=== PATIENT | female | born 1960 | race Caucasian/White ===

== ENCOUNTER 2017-03-15 10:58 | Day surgery (SDC) | payer OTHER ==
[2017-03-09 11:13] VITALS: BMI 33.6
[2017-03-15] MEDS ORDERED: MIDAZOLAM HCL 2 MG/2 ML SINGLE DOSE VIAL ONE (12:07)
[2017-03-15] MEDS ORDERED: DEXAMETHASONE SOD PHOSPHATE/PF 10 MG/ML SDV ONE (12:08)
[2017-03-15] MEDS ORDERED: EPINEPHrine 1:1,000 1 MG/1 ML - 30ML VIAL (INJECTION) ONE (12:53)
[2017-03-15] MEDS ORDERED: PROPOFOL 20 ML ONE ×5 (13:18→14:28)
[2017-03-15] MEDS ORDERED: ceFAZolin SODIUM 1 GM VIAL ONE (13:23)
[2017-03-15] MEDS ORDERED: KETAMINE HCL 200 MG/20 ML VIAL ONE (14:12)
[2017-03-15] MEDS ORDERED: oxyCODONE HCL 5 MG TABLET PO PRN (14:41)
[2017-03-15] MEDS ORDERED: ONDANSETRON 4 MG/2 ML VIAL IVPUSH PRN (14:41)
[2017-03-15] MEDS ORDERED: HYDROmorphone HCL/PF 1 MG/ML VIAL (FOR PYXIS CHARGING ONLY) ONE (14:53)
[2017-03-15] MEDS ORDERED: KETOROLAC TROMETHAMINE 30 MG/1 ML VIAL ONE (15:53)
[2017-03-15] MEDS ORDERED: ACETAMINOPHEN 325 MG TABLET (FP) PO ONE (16:08)
[2017-03-15] MEDS ORDERED: ACETAMINOPHEN 325 MG TABLET (FP) PO PRN (16:08)
[2017-03-15] MEDS ORDERED: KETOROLAC TROMETHAMINE 30 MG/1 ML VIAL IVPUSH ONE (16:09)
[2017-03-15 17:58] VITALS: TEMP 98
[2017-03-15 18:01] VITALS: BP 148/85; PULSE 82
--- NOTE | 2017-03-16 10:25 | OP ---
DATE OF OPERATION: 03/15/2017 PREOPERATIVE DIAGNOSES: 1. Right shoulder rotator cuff tear. 2. Right shoulder biceps tendon tear. 3. Right shoulder subacromial impingement. POSTOPERATIVE DIAGNOSES: 1. Right shoulder rotator cuff tear. 2. Right shoulder biceps tendon tear. 3. 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 4. Right shoulder subacromial impingement syndrome OPERATIVE PROCEDURES: 1. Right shoulder arthroscopic rotator cuff repair. 2. Right shoulder biceps proximal tenotomy. 3. Right shoulder glenohumeral joint extensive debridement and synovectomy. 4. Right shoulder arthroscopic subacromial decompression with anterior-inferior acromioplasty. SURGEON: Dejon Rausch MD DIRECTOR CARD: RACHANA Saenz ANESTHESIA: Regional. COMPLICATIONS: None. ESTIMATED BLOOD LOSS: Minimal. INDICATIONS FOR PROCEDURE: The patient is a 56-year-old female with the above findings, indicated for operative treatment. The risks, benefits, and alternatives were discussed with the patient at length, and proper informed consent was obtained. PROCEDURE: After proper identification of the patient and the correct operative site, patient was brought to the operating room, where regional anesthesia was given. She was placed in the beach-chair position with all points of contact well padded. An in-line cervical position was maintained throughout the procedure. Right upper extremity was prepped and draped in usual sterile fashion. Arthroscopy was performed through posterior, lateral, and anterior portals. All portals were made with skin incision only with blunt dissection down the joint capsule. 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 Significant fraying of the glenoid labrum was noted including superior-anterior and superior-posterior. This was debrided with mechanical shaver. Extensive synovitis was noted in the anterior and inferior aspect of the shoulder, and again this was debrided with mechanical shaver. Subscapularis was found to be intact. Biceps tendon was found to have significant interstitial fraying and tearing all the way to the level of the labrum. At this point, it was determined that a biceps tenotomy would be in her best interest, and the biceps tendon was resected proximally and allowed to fall into the arm. No hourglass lesion was noted, so, the biceps tendon was able to fall into the arm. The patient was found to have a full-thickness retracted tear of the supraspinatus tendon. This was approximately 2 cm in the anterior to posterior direction. Infraspinatus was intact, although there was some tendinosis, which was debrided as well. Arthroscope was then introduced into the subacromial space, where a severe bursitis was noted. This was debrided with mechanical shaver. An ArthroWand was also used. A very large anterior-inferior subacromial spur was noted, and anterior-inferior acromioplasty was performed with a alma delia. The rotator cuff tear was again identified and found to be retracted about 2 cm. The greater tuberosity was debrided for healthy repair. The rotator cuff was mobilized, but was not able to be brought all the way to its original attachment, and therefore, it was medialized in its repair by about 1 cm. The rotator cuff was repaired using an Arthrex double-row equivalent SpeedBridge type technique. Two medial anchors were placed in the humeral head. These were both SwiveLock anchors loaded with FiberTape. These were then passed through the rotator cuff and crossed and attached laterally with a second row of SwiveLock anchors. This provided secure stable repair without any tension on the repair. Shoulder was taken through a range of motion, and full range of motion was achieved without again any tension on the repair. Wounds were irrigated with saline and repaired with 5-0 nylon sutures. Sterile dressings and a sling were placed. The shoulder immobilizer was placed. Patient was reversed from anesthesia and brought to the recovery room in stable condition. She tolerated the procedure well. Yoshi Kimbrough, the assistant portfolio manager, was integral throughout this procedure. The procedure could not have been performed without a skilled operative assistant portfolio manager. Cori [id number]
== END 2017-03-15 17:55 | disposition home or self-care (01) ==
LOC: FASU 10:58
PROVIDERS: ATTEND Orthopaedic Surgery Hand Surgery
PROC: 0LN14ZZ Release Right Shoulder Tendon, Percutaneous Endoscopic Approach (ICD-10-PCS; 2017-03-15)
PROC: 0LB14ZZ Excision of Right Shoulder Tendon, Percutaneous Endoscopic Approach (ICD-10-PCS; principal; 2017-03-15 13:02)
PROC: 0RNJ4ZZ Release Right Shoulder Joint, Percutaneous Endoscopic Approach (ICD-10-PCS; 2017-03-15 13:02)
PROC: 0RBJ4ZZ Excision of Right Shoulder Joint, Percutaneous Endoscopic Approach (ICD-10-PCS; 2017-03-15 13:02)
DX: M75.121 Complete rotator cuff tear or rupture of right shoulder, not specified as traumatic (principal); M66.821 Spontaneous rupture of other tendons, right upper arm; M65.811 Other synovitis and tenosynovitis, right shoulder; M75.41 Impingement syndrome of right shoulder
CPT/HCPCS: 84703; 94760

== ENCOUNTER 2023-01-28 10:05 | Emergency (ER) | payer OTHER ==
[2023-01-28 10:12] VITALS: BP 146/69; PULSE 74; RESP 18; TEMP 98.6; BMI 37.6
[2023-01-28] MEDS ORDERED: ACETAMINOPHEN 500 MG TABLET (FP) PO ONE (10:54)
[2023-01-28] MEDS ORDERED: IBUPROFEN 600 MG TABLET (FP) PO ONE ×2 (10:54→11:03)
[2023-01-28] MEDS ORDERED: ACETAMINOPHEN 500 MG TABLET (FP) ONE (11:03)
== END 2023-01-28 11:37 | disposition home or self-care (01) ==
LOC: JERFT 10:05
DX: S82.831A Other fracture of upper and lower end of right fibula, initial encounter for closed fracture (principal); W18.40XA Slipping, tripping and stumbling without falling, unspecified, initial encounter
CPT/HCPCS: 73610-TC-RT-FY; 73630-TC-RT-FY; 99283-25